=== PATIENT | male | born 2000 | race Caucasian/White ===

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

== ENCOUNTER 2019-03-10 19:28 | Emergency (ER) | payer OTHER ==
[~2019-03-10] VITALS: Ht 180.3 cm; Wt 99.8 kg
[~2019-03-10 19:28] MED LIST: ACYCLOVIR400 MG PO; FLE10 PO; ZOFRAN8 MG PO
[2019-03-10 20:57] VITALS: Ht 180.3 cm; Wt 99.8 kg
[2019-03-10 23:15] VITALS: BP 159/89
== END 2019-03-10 23:15 | disposition home or self-care (01) ==
LOC: ED 19:28
DX: S40.022A Contusion of left upper arm, initial encounter (principal); Z90.89 Acquired absence of other organs; Z91.013 Allergy to seafood; V49.69XA Unspecified car occupant injured in collision with other motor vehicles in traffic accident, initial encounter; Y93.89 Activity, other specified; Y92.413 State road as the place of occurrence of the external cause; Y99.8 Other external cause status